=== PATIENT | male | born 1975 | race Caucasian/White ===

== ENCOUNTER 2022-02-05 18:09 | Emergency (ER) | payer SELFPAY ==
[2022-02-05 18:17] VITALS: BP 232/138; PULSE 99; RESP 18; TEMP 36.8; O2SAT 97; BMI 32.1
--- NOTE | 2022-02-05 18:36 | W.ED.SKABFB ---
HPI - Skin/Abscess/Foreign Bdy General: Chief complaint: Skin/Abscess/Foreign Body Stated complaint: [place] eye Time Seen by Provider: 02/05/22 18:22 History of Present Illness: Patient is a 46-year-old male comes to the ED with pinkeye. symptoms started 2 days ago. He was having some itchiness in right eye and then it started getting red. The last 2 mornings when he wakes up he has some crusty purulent discharge out of right eye. Denies any vision changes. Patient's blood pressure was elevated at triage. Patient says he does not see a primary care doctor and has never been diagnosed with hypertension. He denies any neurological symptoms, headache, abdominal pain, fevers, chills, nausea/vomiting, chest pain, shortness of breath, bladder or bowel symptoms. Associated symptoms: Deny chills, fever(s), nausea or vomiting Review of Systems Const: Denies: fever(s), chills or fatigue Eyes: Reports: eye discomfort (Itching in right eye) and eye redness (In right); Denies: change in vision ENMT: Denies: throat pain, odynophagia, nasal discharge or nasal congestion Card: Denies: chest pain, palpitations, edema, swelling of feet/ankles, dyspnea on exertion or orthopnea Resp: Denies: dyspnea, productive cough or non-productive cough GI: Denies: abdominal pain, nausea, vomiting, diarrhea, constipation or hematochezia : Denies: flank pain, difficulty urinating, dysuria or hematuria Musc: Denies: neck pain, back pain or extremity swelling Skin/Breast: Denies: rash or new lesions Neuro: Denies: headache(s), numbness in extremities or weakness in extremities FOR[facility]LY [facility], [facility] ED PFSH: Medical History No pertinent family history No pertinent past medical history Physical Exam Const: COMMON NORMALS: no acute distress, patient oriented x3, healthy appearing and alert HENMT: COMMON NORMALS: normocephalic HEAD & SCALP: normocephalic MOUTH: Normal oral and palatal mucosa present THROAT: posterior oropharynx normal and uvula midline Eye: COMMON NORMALS: Equal, round and reactive pupils present and EOMs intact bilaterally CONJUNCTIVA: Yes conjunctival abnormal positive right conjunctival injection diffuse PUPIL: Yes Equal, round and reactive pupils present Neck/C-Spine: COMMON NORMALS: supple GENERAL: Yes normal visual inspection Resp: COMMON NORMALS: normal respiratory effort, No retractions, No use of accessory muscles and clear to auscultation bilaterally AUSCULTATION: clear to auscultation bilaterally Cardio: COMMON NORMALS: regular rate, regular rhythm, S1 normal heart sound present, S2 normal heart sound present, No gallops present (Cardio), No clicks present (Cardio), No murmurs present (Cardio) and Peripheral pulses 2+ throughout RATE: regular rate RHYTHM: regular rhythm HEART SOUNDS: S1 normal heart sound present and S2 normal heart sound present PERIPHERAL PULSES: Peripheral pulses 2+ throughout GI: COMMON NORMALS: Normal to inspection, nondistended, normoactive bowel sounds present, Soft to palpation, non-tender and no masses PALPATION: Yes Soft to palpation : COMMON NORMALS: Yes no CVA tenderness BLADDER/KIDNEY EXAM: Yes no CVA tenderness Back/Pelvis: COMMON NORMALS: no CVA tenderness Extremity: COMMON NORMALS: normal to inspection Neuro: COMMON NORMALS: patient oriented x3, CN's II-XII intact bilaterally, moves all extremities, no focal motor deficits and no sensory deficits noted SENSORIUM/ORIENTATION: Yes alert SENSORY EXAM: Yes extremities (intact) MOTOR EXAM: 5/5 motor strength present throughout Skin: GENERAL SKIN EXAM: dry skin Course Vital Signs: Vital signs: Vital Signs Temperature 98.3 F 02/05/22 18:17 Pulse Rate 99 02/05/22 18:17 Respiratory Rate 18 02/05/22 18:17 Blood Pressure 158/110 02/05/22 21:26 Pulse Oximetry 97 02/05/22 18:17 MDM - Skin/Abscess/Foreign Bdy Medicial Decision Making Patient is a 46-year-old male comes to the ED with suspected pinkeye. Patient's right eye has been red and he is woken up with some purulent drainage and crust in his right eye. It is itchy as well. Denies any vision changes. Patient also had elevated blood pressure of 232/138 upon arrival in triage. He denies any current symptoms. He has no history of any hypertension and has never been on any hypertension medications. Neuro exam is benign. No concerns for any endorgan damage. Patient was given 2 doses of clonidine and then some hydralazine and is blood pressure reduced down to 158/110. He was stable then for discharge home. I placed an order with case management for patient to get set up with a primary care physician here locally, since he is new to [facility]. He was diagnosed with conjunctivitis of right eye and asymptomatic hypertensive urgency he was discharged home with Maxitrol eyedrops. He was instructed to get an at-home blood pressure monitor and to take his blood pressures a couple times a day and to journal them so we can bring them to his primary care physician at next appointment. Follow-up with PCP at scheduled appointment. Return to ED precautions given. Patient understood agree with plan. Discharge Plan Discharge Patient Disposition: Home Clinical Impression: Asymptomatic hypertensive urgency Acute conjunctivitis of right eye Qualifiers: Acute conjunctivitis type: unspecified Qualified Code(s): H10.31 - Unspecified acute conjunctivitis, right eye Condition: Stable Prescriptions: New Maxitrol 3.5mg/mL-10,000 unit/mL-0.1 % drops,suspension 1 drp ophthalmic (eye) Q6H 7 Days Qty: 5 0RF Discharge Orders: Discharge ED (Routine); Ordered 02/05/22 Ordered By: Robbie Zambrano Discharge Diet: Regular Discharge Activity: Resume usual activity Patient Instructions: Hypertensive Crisis (ED), Hypertension (ED), Conjunctivitis (ED) Activity Restrictions/Additional Instructions: Follow-up with medical provider as directed. Case management should be contacting the next several days to set up an appointment with the primary care physician. Get an at-home blood pressure monitor and check your blood pressures multiple times a day and journal them so primary care physician can see your blood pressure history. Return to the ER or your medical provider if condition worsens. Please read and understand discharge instructions. Thank you for choosing [facility] for your healthcare needs today. Please realize this is an emergency room and that we are providing you with a medical screening exam and this may not be complete and all inclusive of all the testing and or work up that you may need to determine your ailment or severity of your illness. It is very important that you follow up as instructed or that you return to the Emergency Department should you have concerns or if your condition changes or worsens in any way. Coding Level of Care Code ED Pediatric Dental Hygienist for Josafat Aguirre Exam Comprehensive
[2022-02-05 18:48] VITALS: BP 206/130
[2022-02-05] MEDS: cloNIDine 0.1 mg Tablet PO ×2 (18:48→19:36)
[2022-02-05] MEDS: neomycin-poly-dex Op 5 mL Btl 2 DROP EYE-RIGHT (19:03)
[2022-02-05 19:36] VITALS: BP 210/113
[2022-02-05] MEDS: hyDRALAzine 25 mg Tablet PO (21:03)
[2022-02-05 21:26] VITALS: BP 158/110
--- NOTE | 2022-02-06 11:20 | DCPLANNER ---
Addendum entered by Shruthi Bee 02/23/22 07:56: Patient had a follow up appointment scheduled for 02.08.[address] Santamaria at [facility] to establish care - patient did attend appointment. Addendum entered by Shruthi Bee 02/06/22 15:00: Patient called disease case manager rn back, stating that he would like help in getting established with a primary care physician. manager human resources called [facility], spoke with Tika, gave clinic patients information. A follow up appointment was scheduled for January at 10:[address] Holt. manager human resources gave patient the appointment information. Original Note: manager human resources had message to speak with patient about getting established with a primary care physician. manager human resources called phone number [phone], unable to speak with patient at this time. A voicemail was left for patient to return [employer] caser phone call.
== END 2022-02-05 21:29 | disposition home or self-care (01) ==
PROVIDERS: Emergency Provider Physician Assistant
DX: H10.31 Unspecified acute conjunctivitis, right eye (principal); I16.0 Hypertensive urgency
CPT/HCPCS: 99283

== ENCOUNTER → 2022-02-08 11:35 | Outpatient (BNVA) | payer SELFPAY | PROVIDERS: Visit Provider Family Medicine | DX: I10 Essential (primary) hypertension (principal); Z76.89 Persons encountering health services in other specified circumstances | CPT/HCPCS: 80053; 80061; 85025 ==

== ENCOUNTER → 2023-10-09 09:18 | Outpatient (BNVA) | payer OTHER, SELFPAY | PROVIDERS: PCP Family Medicine; Visit Provider Family Medicine | DX: I10 Essential (primary) hypertension (principal); Z76.89 Persons encountering health services in other specified circumstances; E78.2 Mixed hyperlipidemia; F17.219 Nicotine dependence, cigarettes, with unspecified nicotine-induced disorders | CPT/HCPCS: 80053; 80061; 85025 ==

== ENCOUNTER → 2024-03-11 08:50 | Outpatient (BNVA) | payer OTHER, SELFPAY | PROVIDERS: PCP Family Medicine; Visit Provider Family Medicine | DX: K21.9 Gastro-esophageal reflux disease without esophagitis (principal); R10.13 Epigastric pain | CPT/HCPCS: 80053; 83690 ==

== ENCOUNTER → 2025-09-16 11:30 | Outpatient (BNVA) | payer OTHER, SELFPAY | PROVIDERS: PCP Family Medicine; Visit Provider Family Medicine | DX: E55.9 Vitamin D deficiency, unspecified (principal); E78.2 Mixed hyperlipidemia; I10 Essential (primary) hypertension; Z12.5 Encounter for screening for malignant neoplasm of prostate; R79.89 Other specified abnormal findings of blood chemistry | CPT/HCPCS: 80053; 80061; 82306; 82607; 84443; 85025; G0103 ==

== ENCOUNTER 2025-09-28 15:46 | Outpatient (CLI) | payer OTHER, SELFPAY ==
--- NOTE | 2025-09-28 15:45 | CT_ITS ---
WS: [id number] LDCT LUNG CANCER SCREENING HISTORY: F17.210 - Nicotine dependence, cigarettes, uncomplicated TECHNIQUE: Axial imaging performed from the apices to 1 cm below the costophrenic angles. Coronal and sagittal reformats are submitted with axial MIP series. All CT scans at [facility] use at least one of these dose optimization techniques: automated exposure control; mA and/or kV adjustment per patient size (includes targeted exams where dose is matched to clinical indication); or iterative reconstruction. DLP: 92.61 mGy.cm DIvol: Mean CTDIvol: 1.80 (mGy) COMPARISON: None available. Diagnostic quality: Satisfactory Lungs: Well aerated lungs. 2 mm LEFT fissural nodules. Pleural-based 2 to 3 mm nodules in the lingula and LEFT lower lobe. No endobronchial lesions. Heart: Normal size heart with no pericardial effusion.. Other findings: Normal size aorta and pulmonary artery. No mediastinal or hilar adenopathy. Small hiatal hernia. No adrenal mass. Visualized upper abdomen is negative. CT/CT lung screening [id number] IMPRESSION: LUNG-RADS: 2-Benign Appearance or Behavior FOLLOW UP: 12 Month: Continue annual screening with LDCT OTHER FINDINGS (S MODIFIER): None.
== END 2025-09-28 15:47 | disposition home or self-care (01) ==
LOC: RAD 15:47
PROVIDERS: PCP Family Medicine; Visit Provider Family Medicine
DX: Z12.2 Encounter for screening for malignant neoplasm of respiratory organs (principal); F17.210 Nicotine dependence, cigarettes, uncomplicated; R91.8 Other nonspecific abnormal finding of lung field; K44.9 Diaphragmatic hernia without obstruction or gangrene
CPT/HCPCS: 71271